=== PATIENT | male | born 1995 | race Caucasian/White ===

== ENCOUNTER 2017-12-08 18:01 | Emergency (ER) | payer MEDICAID ==
[~2017-12-08] VITALS: Ht 198.1 cm; Wt 73.0 kg
[2017-12-08] MEDS ORDERED: ACETAMINOPHEN 325MG TABLET PO STA (18:17)
[2017-12-08] MEDS ORDERED: ACETAMINOPHEN 325MG TABLET ONE (18:19)
[2017-12-08] MEDS ORDERED: SODIUM CHLORIDE 0.9% 1,000 ML IV ONE (18:58)
[2017-12-08] MEDS ORDERED: MORPHINE SULFATE 4 MG/ML CPJ (NOT FOR IM USE) IV STA (18:58)
[2017-12-08] MEDS ORDERED: ONDANSETRON HCL 4MG/2ML VIAL IV STA (18:58)
[2017-12-08 19:00] LABS: BASOPHILS % 0.3 % (0.0-2.0); EOSINOPHILS % 0.1 % (0.0-5.0); HEMATOCRIT. 37.2 % (42.0-52.0); HEMOGLOBIN. 12.6 g/dL (14.0-18.0); MEAN CORPUSCULAR HEMOGLOBIN 27.3 pg (28.0-32.0); MEAN CORPUSCULAR VOLUME 80.6 fL (80.0-94.0); MEAN PLATELET VOLUME 8.5 fl (7.4-10.4); MONOCYTES % 5.4 % (2.0-8.0); NEUTROPHILS % 78.2 % (40.0-76.0); PLATELET 252 x1000/uL (130-400); RED BLOOD CELL COUNT 4.61 mill/uL (4.7-6.1)
[2017-12-08 19:05] LABS: CHLORIDE 105 mEq/L (98-107)
[2017-12-08 19:06] LABS: PROTHROMBIN TIME 10.9 sec (9.4-11.6)
[2017-12-08] MEDS ORDERED: KETOROLAC 30MG/ML VIAL IV ONE (20:45)
[2017-12-08] MEDS ORDERED: POTASSIUM CHLORIDE 20MEQ TABLET SR PO ONE (21:00)
[2017-12-08 22:24] LABS: CLARITY URINE CLOUDY (CLEAR); COLOR URINE YELLOW (YELLOW); KETONES URINE 4+ (NEGATIVE); LEUKOCYTE ESTERASE URINE NEGATIVE (NEGATIVE); NITRITE URINE NEGATIVE (NEGATIVE); OCCULT BLOOD URINE NEGATIVE (NEGATIVE); PH URINE >=9.0 (4.5-8.0); PROTEIN URINE 1+ (NEGATIVE); SPECIFIC GRAVITY URINE 1.024 (1.005-1.030)
[2017-12-08 22:43] LABS: PHENCYCLIDINE URINE SCREEN NEGATIVE (NEGATIVE)
[2017-12-08 22:44] LABS: *AMPHETAMINES SCREEN URINE NEGATIVE (NEGATIVE); *BARBITURATES SCREEN URINE NEGATIVE (NEGATIVE); *BENZODIAZEPINES SCREEN URINE NEGATIVE (NEGATIVE); *COCAINE SCREEN URINE NEGATIVE (NEGATIVE); CANNABINOID URINE SCREEN NEGATIVE (NEGATIVE); METHADONE URINE SCREEN NEGATIVE (NEGATIVE); OPIATES URINE SCREEN PRESUMTIVE POSITIVE (NEGATIVE)
[2017-12-08 23:30] VITALS: BP 116/59
== END 2017-12-08 23:30 | disposition home or self-care (01) ==
LOC: ER 21:05
DX: R10.30 Lower abdominal pain, unspecified (principal); K56.41 Fecal impaction; R11.2 Nausea with vomiting, unspecified; K92.1 Melena; Z90.49 Acquired absence of other specified parts of digestive tract
CPT/HCPCS: 36415; 74176; 80053; 80305; 81003; 83690; 85025; 85610; 96361; 96374; 96375; 99285; J1885; J2270; J2405; J7030